=== PATIENT | male | born 1990 | race African-American/Black ===

== ENCOUNTER 2018-03-02 18:51 | Emergency (ER) | payer OTHER ==
[2018-03-02] MEDS ORDERED: NAPROXEN 250 MG TABLET PO ONE (20:38)
[2018-03-02] MEDS ORDERED: ACETAMINOPHEN 325 MG TABLET PO ONE (20:38)
[2018-03-02] MEDS ORDERED: LIDOCAINE 5% (700 MG) TRANSDERMAL ADH..PATCH TP ONE (20:38)
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
[2018-03-02 21:22] VITALS: BP 127/72
== END 2018-03-02 21:29 | disposition home or self-care (01) ==
LOC: ER 18:51
DX: M54.6 Pain in thoracic spine (principal); M54.2 Cervicalgia; V43.52XA Car driver injured in collision with other type car in traffic accident, initial encounter
CPT/HCPCS: 99283

== ENCOUNTER 2019-05-12 19:05 | Emergency (ER) | payer OTHER ==
[2019-05-12] MEDS ORDERED: KETOROLAC TROMETHAMINE 60 MG/2 ML SDV IM ONE (20:23)
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
[2019-05-12 21:20] VITALS: BP 116/69
== END 2019-05-12 21:13 | disposition home or self-care (01) ==
LOC: ER 19:05
DX: S00.33XA Contusion of nose, initial encounter (principal); S06.9X9A Unspecified intracranial injury with loss of consciousness of unspecified duration, initial encounter; Y35.813A Legal intervention involving manhandling, suspect injured, initial encounter; F17.210 Nicotine dependence, cigarettes, uncomplicated
CPT/HCPCS: 99283; 96372; 70450; 72125; J1885